=== PATIENT | female | born 1940 | race Caucasian/White ===

== ENCOUNTER 2020-08-19 22:07 | Inpatient (IN) ==
[2020-08-20] MEDS ORDERED: Insulin NPH/REG 70/30 300 UNIT/3 ML per UNIT SUBQ ONE (21:00)
[2020-08-20] MEDS: Gabapentin 100 MG CAPSULE PO SCH (21:41)
[2020-08-20] MEDS: *HR* HYDROcodone/Acet 5/325 mg TABLET PO PRN (21:50)
[2020-08-20 22:45] LABS: INR 2.2; Prothrombin Time 24.4 Seconds (9.4-12.1)
[2020-08-21] MEDS: Insulin NPH/REG 70/30 100 UNIT/ML (x5UNIT) SUBQ SCH ×3 (08:37→17:19)
[2020-08-21] MEDS: polyethylene glycoL 3350 17 GM POWD.PACK PO SCH (08:49)
[2020-08-21] MEDS: FLUoxetine 20 MG CAPSULE PO SCH (08:49)
[2020-08-21] MEDS: Furosemide 40 MG TABLET PO SCH (08:50)
[2020-08-21] MEDS: Gabapentin 100 MG CAPSULE PO SCH ×3 (08:50→21:03)
[2020-08-21] MEDS: carvediloL 6.25 MG TABLET PO SCH ×2 (08:50→16:39)
[2020-08-21] MEDS: (Pravastatin Sodium [Pravachol] 40 MG Tablet) PO SCH (16:42)
[2020-08-21] MEDS ORDERED: *HR* Warfarin 2 MG TABLET PO SCH (18:00)
[2020-08-22 07:30] LABS: Hematocrit 27.2 % (35.3-44.9); Hemoglobin 8.3 g/dL (11.5-15.4); Mean Corpuscular HGB Conc 30.5 g/dL (31.6-35.5); Mean Corpuscular Hemoglobin 30.1 pg (28.0-33.3); Mean Corpuscular Volume 98.6 fL (83.0-100.0); Mean Platelet Volume 9.6 fL (9.4-12.4); Red Blood Count 2.76 M/mcL (3.82-4.97); Red Cell Distribution Width 15.6 % (11.5-14.5); White Blood Count 3.4 K/mcL (4.3-11.1)
[2020-08-22 07:32] LABS: Platelet Count 75 K/mcL (140-400)
[2020-08-22 07:43] LABS: Calcium 10.3 mg/dL (8.6-10.3); Magnesium 1.7 mg/dL (1.6-2.6)
[2020-08-22] MEDS ORDERED: Insulin NPH/REG 70/30 100 UNIT/ML (x5UNIT) SUBQ SCH (08:45)
[2020-08-22] MEDS: Gabapentin 100 MG CAPSULE PO SCH ×3 (08:47→19:55)
[2020-08-22] MEDS: polyethylene glycoL 3350 17 GM POWD.PACK PO SCH (08:47)
[2020-08-22] MEDS: Furosemide 40 MG TABLET PO SCH ×2 (08:47→16:34)
[2020-08-22] MEDS: carvediloL 6.25 MG TABLET PO SCH ×2 (08:47→16:34)
[2020-08-22] MEDS: FLUoxetine 20 MG CAPSULE PO SCH (08:47)
[2020-08-22] MEDS: *HR* HYDROcodone/Acet 5/325 mg TABLET PO PRN ×2 (08:58→20:04)
[2020-08-22] MEDS: Insulin NPH/REG 70/30 100 UNIT/ML (x5UNIT) SUBQ SCH (09:50)
[2020-08-22] MEDS ORDERED: *HR* Dextrose 50 % in Water (Vial) 50 ML VIAL IVP PRN (10:47)
[2020-08-22] MEDS ORDERED: D5% in Water 1,000 ML IVC PRN (10:47)
[2020-08-22] MEDS ORDERED: Dextrose Gel 15 GM/37.5 ML TUBE PO PRN ×2 (10:47)
[2020-08-22 11:00] LABS: INR 2.3; Prothrombin Time 26.4 Seconds (9.4-12.1)
[2020-08-22] MEDS: Insulin LISPRO 300 UNITS/3 ML VIAL SUBQ SCH ×2 (11:57→16:33)
[2020-08-22] MEDS: (Pravastatin Sodium [Pravachol] 40 MG Tablet) PO SCH (16:35)
[2020-08-22] MEDS ORDERED: *HR* Warfarin 3 MG TABLET PO ONE (18:00)
[2020-08-22] MEDS ORDERED: Warfarin perPT PO PRN (18:00)
[2020-08-22] MEDS ORDERED: *HR* Warfarin 3 MG TABLET PO SCH (18:00)
[2020-08-23 06:22] LABS: INR 2.3; Prothrombin Time 26.3 Seconds (9.4-12.1)
[2020-08-23] MEDS: *HR* HYDROcodone/Acet 5/325 mg TABLET PO PRN ×2 (09:53→21:37)
[2020-08-23] MEDS: polyethylene glycoL 3350 17 GM POWD.PACK PO SCH (09:54)
[2020-08-23] MEDS: Gabapentin 100 MG CAPSULE PO SCH ×3 (09:54→21:37)
[2020-08-23] MEDS: carvediloL 6.25 MG TABLET PO SCH ×2 (09:54→18:02)
[2020-08-23] MEDS: FLUoxetine 20 MG CAPSULE PO SCH (09:54)
[2020-08-23] MEDS: Furosemide 40 MG TABLET PO SCH ×2 (09:54→18:03)
[2020-08-23] MEDS: Insulin LISPRO 300 UNITS/3 ML VIAL SUBQ SCH ×3 (09:55→16:15)
[2020-08-23] MEDS: (Pravastatin Sodium [Pravachol] 40 MG Tablet) PO SCH (17:54)
[2020-08-23] MEDS ORDERED: *HR* Warfarin 2 MG TABLET PO ONE (18:00)
[2020-08-24 08:28] LABS: INR 2.3
[2020-08-24] MEDS: Furosemide 40 MG TABLET PO SCH ×2 (08:56→16:52)
[2020-08-24] MEDS: Gabapentin 100 MG CAPSULE PO SCH ×3 (08:56→20:47)
[2020-08-24] MEDS: carvediloL 6.25 MG TABLET PO SCH ×2 (08:56→16:52)
[2020-08-24] MEDS: FLUoxetine 20 MG CAPSULE PO SCH (08:56)
[2020-08-24] MEDS: Insulin LISPRO 300 UNITS/3 ML VIAL SUBQ SCH ×3 (08:57→16:52)
[2020-08-24] MEDS: polyethylene glycoL 3350 17 GM POWD.PACK PO SCH (08:58)
[2020-08-24] MEDS: *HR* HYDROcodone/Acet 5/325 mg TABLET PO PRN ×2 (09:03→16:58)
[2020-08-24] MEDS: *HR* Warfarin 3 MG TABLET PO SCH (16:52)
[2020-08-24] MEDS: (Pravastatin Sodium [Pravachol] 40 MG Tablet) PO SCH (19:22)
[2020-08-25] MEDS: Insulin LISPRO 300 UNITS/3 ML VIAL SUBQ SCH ×3 (08:18→16:42)
[2020-08-25] MEDS: polyethylene glycoL 3350 17 GM POWD.PACK PO SCH (08:19)
[2020-08-25] MEDS: Gabapentin 100 MG CAPSULE PO SCH ×3 (08:19→20:47)
[2020-08-25] MEDS: FLUoxetine 20 MG CAPSULE PO SCH (08:19)
[2020-08-25] MEDS: carvediloL 6.25 MG TABLET PO SCH ×2 (08:19→16:38)
[2020-08-25] MEDS: Furosemide 40 MG TABLET PO SCH ×2 (08:19→16:38)
[2020-08-25] MEDS: *HR* HYDROcodone/Acet 5/325 mg TABLET PO PRN (08:21)
[2020-08-25] MEDS: (Pravastatin Sodium [Pravachol] 40 MG Tablet) PO SCH (17:32)
[2020-08-25] MEDS: *HR* Warfarin 2 MG TABLET PO SCH (17:32)
[2020-08-26] MEDS: *HR* HYDROcodone/Acet 5/325 mg TABLET PO PRN ×2 (05:47→18:39)
[2020-08-26] MEDS: Gabapentin 100 MG CAPSULE PO SCH ×3 (08:12→20:16)
[2020-08-26] MEDS: Furosemide 40 MG TABLET PO SCH ×2 (08:12→16:52)
[2020-08-26] MEDS: FLUoxetine 20 MG CAPSULE PO SCH (08:12)
[2020-08-26] MEDS: carvediloL 6.25 MG TABLET PO SCH ×2 (08:12→16:52)
[2020-08-26] MEDS: Insulin LISPRO 300 UNITS/3 ML VIAL SUBQ SCH ×3 (08:12→16:54)
[2020-08-26] MEDS: polyethylene glycoL 3350 17 GM POWD.PACK PO SCH (08:20)
[2020-08-26] MEDS: *HR* Warfarin 3 MG TABLET PO SCH (16:52)
[2020-08-26] MEDS: (Pravastatin Sodium [Pravachol] 40 MG Tablet) PO SCH (16:55)
[2020-08-26] MEDS ORDERED: Furosemide 40 MG TABLET PO ONE (22:54)
[2020-08-27] MEDS: *HR* HYDROcodone/Acet 5/325 mg TABLET PO PRN ×2 (05:43→15:44)
[2020-08-27 05:49] LABS: INR 2.5
[2020-08-27] MEDS: carvediloL 6.25 MG TABLET PO SCH ×2 (08:12→16:49)
[2020-08-27] MEDS: Insulin LISPRO 300 UNITS/3 ML VIAL SUBQ SCH ×3 (08:12→16:27)
[2020-08-27] MEDS: polyethylene glycoL 3350 17 GM POWD.PACK PO SCH (08:12)
[2020-08-27] MEDS: Furosemide 40 MG TABLET PO SCH ×2 (08:12→16:50)
[2020-08-27] MEDS: Gabapentin 100 MG CAPSULE PO SCH ×3 (08:14→20:49)
[2020-08-27] MEDS: FLUoxetine 20 MG CAPSULE PO SCH (08:14)
[2020-08-27] MEDS: *HR* Warfarin 2 MG TABLET PO SCH (16:49)
[2020-08-27] MEDS: (Pravastatin Sodium [Pravachol] 40 MG Tablet) PO SCH (16:50)
[2020-08-27] MEDS ORDERED: Furosemide 40 MG TABLET PO ONE (20:31)
[2020-08-28] MEDS: *HR* HYDROcodone/Acet 5/325 mg TABLET PO PRN ×2 (05:38→15:10)
[2020-08-28] MEDS: carvediloL 6.25 MG TABLET PO SCH ×2 (08:35→16:34)
[2020-08-28] MEDS: Furosemide 40 MG TABLET PO SCH ×2 (08:35→16:34)
[2020-08-28] MEDS: polyethylene glycoL 3350 17 GM POWD.PACK PO SCH (08:35)
[2020-08-28] MEDS: FLUoxetine 20 MG CAPSULE PO SCH (08:35)
[2020-08-28] MEDS: Gabapentin 100 MG CAPSULE PO SCH ×3 (08:35→20:40)
[2020-08-28] MEDS: Insulin LISPRO 300 UNITS/3 ML VIAL SUBQ SCH ×3 (08:36→16:34)
[2020-08-28] MEDS: *HR* Warfarin 3 MG TABLET PO SCH (18:15)
[2020-08-28] MEDS: (Pravastatin Sodium [Pravachol] 40 MG Tablet) PO SCH (18:15)
[2020-08-29 06:55] LABS: Hematocrit 25.7 % (35.3-44.9); Hemoglobin 7.6 g/dL (11.5-15.4); Mean Corpuscular HGB Conc 29.6 g/dL (31.6-35.5); Mean Corpuscular Volume 101.6 fL (83.0-100.0); Mean Platelet Volume 10.5 fL (9.4-12.4); Red Blood Count 2.53 M/mcL (3.82-4.97); Red Cell Distribution Width 15.6 % (11.5-14.5); White Blood Count 2.7 K/mcL (4.3-11.1)
[2020-08-29 07:00] LABS: Platelet Count 99 K/mcL (140-400)
[2020-08-29 07:10] LABS: INR 2.3; Prothrombin Time 25.6 Seconds (9.4-12.1)
[2020-08-29 07:20] LABS: Calcium 10.1 mg/dL (8.6-10.3); Potassium 4.3 mEq/L (3.5-5.1)
[2020-08-29] MEDS: FLUoxetine 20 MG CAPSULE PO SCH (08:22)
[2020-08-29] MEDS: Gabapentin 100 MG CAPSULE PO SCH ×3 (08:22→20:31)
[2020-08-29] MEDS: polyethylene glycoL 3350 17 GM POWD.PACK PO SCH (08:22)
[2020-08-29] MEDS: carvediloL 6.25 MG TABLET PO SCH ×2 (08:22→17:22)
[2020-08-29] MEDS: Insulin LISPRO 300 UNITS/3 ML VIAL SUBQ SCH ×3 (08:22→17:23)
[2020-08-29] MEDS: Furosemide 40 MG TABLET PO SCH ×2 (08:22→17:22)
[2020-08-29] MEDS: *HR* HYDROcodone/Acet 5/325 mg TABLET PO PRN ×2 (08:25→14:53)
[2020-08-29] MEDS: (Pravastatin Sodium [Pravachol] 40 MG Tablet) PO SCH (18:09)
[2020-08-29] MEDS: *HR* Warfarin 2 MG TABLET PO SCH (19:33)
[2020-08-30 05:45] LABS: INR 2.2; Prothrombin Time 25.3 Seconds (9.4-12.1)
[2020-08-30] MEDS: *HR* HYDROcodone/Acet 5/325 mg TABLET PO PRN ×2 (08:49→16:24)
[2020-08-30] MEDS: Gabapentin 100 MG CAPSULE PO SCH ×3 (08:49→21:09)
[2020-08-30] MEDS: Furosemide 40 MG TABLET PO SCH ×2 (08:50→16:24)
[2020-08-30] MEDS: carvediloL 6.25 MG TABLET PO SCH ×2 (08:50→16:24)
[2020-08-30] MEDS: FLUoxetine 20 MG CAPSULE PO SCH (08:50)
[2020-08-30] MEDS: polyethylene glycoL 3350 17 GM POWD.PACK PO SCH (08:51)
[2020-08-30] MEDS: Insulin LISPRO 300 UNITS/3 ML VIAL SUBQ SCH ×3 (08:51→16:26)
[2020-08-30] MEDS: *HR* Warfarin 3 MG TABLET PO SCH (17:52)
[2020-08-30] MEDS: (Pravastatin Sodium [Pravachol] 40 MG Tablet) PO SCH (17:57)
[2020-08-31] MEDS: *HR* HYDROcodone/Acet 5/325 mg TABLET PO PRN ×3 (05:49→23:34)
[2020-08-31 06:21] LABS: INR 2.3; Prothrombin Time 26.5 Seconds (9.4-12.1)
[2020-08-31] MEDS: carvediloL 6.25 MG TABLET PO SCH ×2 (09:39→17:21)
[2020-08-31] MEDS: Furosemide 40 MG TABLET PO SCH ×2 (09:50→17:21)
[2020-08-31] MEDS: Gabapentin 100 MG CAPSULE PO SCH ×3 (09:50→21:01)
[2020-08-31] MEDS: FLUoxetine 20 MG CAPSULE PO SCH (09:50)
[2020-08-31] MEDS: Insulin LISPRO 300 UNITS/3 ML VIAL SUBQ SCH ×3 (09:51→16:44)
[2020-08-31] MEDS: polyethylene glycoL 3350 17 GM POWD.PACK PO SCH (09:51)
[2020-08-31] MEDS: (Pravastatin Sodium [Pravachol] 40 MG Tablet) PO SCH (15:25)
[2020-08-31] MEDS: *HR* Warfarin 2 MG TABLET PO SCH (17:21)
[2020-08-31] MEDS ORDERED: Simethicone 80 MG TAB.CHEW PO PRN (18:14)
[2020-09-01 05:33] LABS: INR 2.3
[2020-09-01] MEDS: Furosemide 40 MG TABLET PO SCH ×2 (10:21→17:36)
[2020-09-01] MEDS: polyethylene glycoL 3350 17 GM POWD.PACK PO SCH ×2 (10:21→10:49)
[2020-09-01] MEDS: FLUoxetine 20 MG CAPSULE PO SCH (10:21)
[2020-09-01] MEDS: Gabapentin 100 MG CAPSULE PO SCH ×3 (10:21→21:35)
[2020-09-01] MEDS: carvediloL 6.25 MG TABLET PO SCH ×2 (10:21→17:36)
[2020-09-01] MEDS: *HR* HYDROcodone/Acet 5/325 mg TABLET PO PRN ×2 (10:24→17:40)
[2020-09-01] MEDS: Insulin LISPRO 300 UNITS/3 ML VIAL SUBQ SCH ×3 (10:24→17:36)
[2020-09-01] MEDS: *HR* Warfarin 3 MG TABLET PO SCH (17:36)
[2020-09-01] MEDS: (Pravastatin Sodium [Pravachol] 40 MG Tablet) PO SCH (17:36)
[2020-09-02 08:12] LABS: INR 2.1; Prothrombin Time 23.8 Seconds (9.4-12.1)
[2020-09-02 08:20] LABS: Calcium 10.1 mg/dL (8.6-10.3); Potassium 4.6 mEq/L (3.5-5.1)
[2020-09-02 08:37] LABS: Basophils % 0.7 %; Eosinophils # 0.1 K/mcL (0.0-0.6); Eosinophils % 3.7 %; Hematocrit 25.5 % (35.3-44.9); Hemoglobin 7.6 g/dL (11.5-15.4); Immature Granulocytes % 0.3 % (0-4); Lymphocytes # 0.6 K/mcL (0.6-4.6); Lymphocytes % 18.8 %; Mean Corpuscular HGB Conc 29.8 g/dL (31.6-35.5); Mean Corpuscular Volume 100.8 fL (83.0-100.0); Mean Platelet Volume 10.1 fL (9.4-12.4); Monocytes # 0.3 K/mcL (0.0-1.3); Monocytes % 9.7 %; Platelet Count 111 K/mcL (140-400); Red Blood Count 2.53 M/mcL (3.82-4.97); Red Cell Distribution Width 15.9 % (11.5-14.5); Segmented Neutrophils % 66.8 %
[2020-09-02] MEDS: *HR* HYDROcodone/Acet 5/325 mg TABLET PO PRN ×3 (08:56→22:53)
[2020-09-02] MEDS: carvediloL 6.25 MG TABLET PO SCH ×2 (08:56→16:05)
[2020-09-02] MEDS: FLUoxetine 20 MG CAPSULE PO SCH (08:57)
[2020-09-02] MEDS: Furosemide 40 MG TABLET PO SCH ×2 (08:57→16:05)
[2020-09-02] MEDS: Gabapentin 100 MG CAPSULE PO SCH ×3 (08:57→21:42)
[2020-09-02] MEDS: Insulin LISPRO 300 UNITS/3 ML VIAL SUBQ SCH ×4 (08:57→21:41)
[2020-09-02] MEDS: polyethylene glycoL 3350 17 GM POWD.PACK PO SCH (08:58)
[2020-09-02] MEDS: *HR* Warfarin 2 MG TABLET PO SCH (16:47)
[2020-09-02] MEDS: (Pravastatin Sodium [Pravachol] 40 MG Tablet) PO SCH (16:48)
[2020-09-03] MEDS: Insulin LISPRO 300 UNITS/3 ML VIAL SUBQ SCH ×4 (08:41→20:37)
[2020-09-03] MEDS: Gabapentin 100 MG CAPSULE PO SCH ×3 (08:42→20:33)
[2020-09-03] MEDS: FLUoxetine 20 MG CAPSULE PO SCH (08:42)
[2020-09-03] MEDS: *HR* HYDROcodone/Acet 5/325 mg TABLET PO PRN (08:42)
[2020-09-03] MEDS: carvediloL 6.25 MG TABLET PO SCH ×2 (08:42→17:23)
[2020-09-03] MEDS: polyethylene glycoL 3350 17 GM POWD.PACK PO SCH (08:42)
[2020-09-03] MEDS: Furosemide 40 MG TABLET PO SCH ×2 (08:42→17:23)
[2020-09-03] MEDS: Ipratropium/Albuterol Neb 3 ML IH PRN (09:36)
[2020-09-03] MEDS: (Pravastatin Sodium [Pravachol] 40 MG Tablet) PO SCH (17:24)
[2020-09-03] MEDS: *HR* Warfarin 3 MG TABLET PO SCH (17:24)
[2020-09-04 06:12] LABS: INR 2.4; Prothrombin Time 27.1 Seconds (9.4-12.1)
[2020-09-04] MEDS: Gabapentin 100 MG CAPSULE PO SCH ×3 (08:21→20:21)
[2020-09-04] MEDS: carvediloL 6.25 MG TABLET PO SCH ×2 (08:21→16:49)
[2020-09-04] MEDS: polyethylene glycoL 3350 17 GM POWD.PACK PO SCH (08:22)
[2020-09-04] MEDS: FLUoxetine 20 MG CAPSULE PO SCH (08:22)
[2020-09-04] MEDS: Furosemide 40 MG TABLET PO SCH ×2 (08:22→16:50)
[2020-09-04] MEDS: Insulin LISPRO 300 UNITS/3 ML VIAL SUBQ SCH ×4 (08:23→20:22)
[2020-09-04] MEDS: Ipratropium/Albuterol Neb 3 ML IH PRN (09:17)
[2020-09-04] MEDS: (Pravastatin Sodium [Pravachol] 40 MG Tablet) PO SCH (16:39)
[2020-09-04] MEDS: *HR* Warfarin 2 MG TABLET PO SCH (17:35)
[2020-09-05] MEDS ORDERED: Acetaminophen 325 MG TABLET PO PRN (08:33)
[2020-09-05] MEDS: carvediloL 6.25 MG TABLET PO SCH ×2 (08:41→17:05)
[2020-09-05] MEDS: FLUoxetine 20 MG CAPSULE PO SCH (08:41)
[2020-09-05] MEDS: Gabapentin 100 MG CAPSULE PO SCH ×3 (08:41→19:35)
[2020-09-05] MEDS: Furosemide 40 MG TABLET PO SCH ×2 (08:41→17:05)
[2020-09-05] MEDS: Insulin LISPRO 300 UNITS/3 ML VIAL SUBQ SCH ×4 (08:42→19:35)
[2020-09-05] MEDS: polyethylene glycoL 3350 17 GM POWD.PACK PO SCH (08:42)
[2020-09-05] MEDS: *HR* HYDROcodone/Acet 5/325 mg TABLET PO PRN ×2 (09:50→19:35)
[2020-09-05] MEDS: *HR* Warfarin 3 MG TABLET PO SCH (17:05)
[2020-09-05] MEDS: (Pravastatin Sodium [Pravachol] 40 MG Tablet) PO SCH (17:06)
[2020-09-06 07:11] VITALS: BP 154/76
[2020-09-06] MEDS: FLUoxetine 20 MG CAPSULE PO SCH (08:17)
[2020-09-06] MEDS: Furosemide 40 MG TABLET PO SCH (08:17)
[2020-09-06] MEDS: carvediloL 6.25 MG TABLET PO SCH (08:18)
[2020-09-06] MEDS: Gabapentin 100 MG CAPSULE PO SCH (08:18)
[2020-09-06] MEDS: Insulin LISPRO 300 UNITS/3 ML VIAL SUBQ SCH (08:18)
[2020-09-06] MEDS: polyethylene glycoL 3350 17 GM POWD.PACK PO SCH (08:19)
[2020-09-06] MEDS: *HR* HYDROcodone/Acet 5/325 mg TABLET PO PRN (08:25)
== END 2020-09-06 11:30 | disposition home health service (06) | DRG 291 ==
LOC: INPPIK 08-20 19:24
PROVIDERS: ADMIT Family Medicine; ATTEND Family Medicine